=== PATIENT | female | born 1940 | race Caucasian/White ===

== ENCOUNTER 2017-05-11 17:09 | Inpatient (IN) | payer MEDICARE ==
[~2017-05-11] VITALS: Ht 165.1 cm; Wt 60.3 kg
[~2017-05-11 17:09] MED LIST: CALCIUM CARBON500 M1 PO; CALCIUM CITRATE1 TA5 PO; CARAFATE 1GM1 G PO; CELEXA 20MG20 MG/TAB PO; CLARITIN10 MG PO; DITROPAN 5MG TAB5 MG PO; DOXYCYCLINE 10100 MG PO; EPA FISH OIL1000 MG PO; FISH OIL1 IU PO; FISH OIL500 MG PO; FLUOXETINE10 MG PO; ILOTYCIN5 MG/GM OU; LASIX 20MG TABL20 MG PO; LEVAQUIN 5500 MG/TA1 PO; LEVOTHYROXINE PO; LEVOTHYROXINE0.1 MG PO; LEVOXYL0.1 MG PO; LISINOPRIL20 MG PO; MACROBID 1100 MG/CAP PO; MAXZIDE-25MG TA1 TAB PO; MEDROL 4MG DOSPA4 MG PO; NIASPAN500 MG PO; OMEPRAZOLE20 MG PO; OMNICEF 300MG300 MG PO; PEPCID20 MG PO; PRAVACHOL 20MG20 MG PO; PRIL40 PO; PRILOSEC 20MG20 MG PO; PROTONIX 40MG T40 MG PO; ROPINIROLE HYDRO1 MG PO; SARAFEM10 MG PO; SYNTHROID0.1 MG/TAB PO; SYNTHROID0.112 MG/T PO; TAB-A-VITE1 TA1 PO; TRIAMTERENE-HCTZ; TRIAMTERENE/HCT1 TAB PO; UNABLE; ZITHROMAX Z PA250 MG PO
[2017-05-11 17:36] LABS: BASO % 0.3 % (0.0-2.0); EOS # 0.1 (0.0-0.7); EOS % 1.2 % (0-4.0); GRAN # 5.2 (1.4-6.5); GRAN % 78.2 % (42.2-75.2); LYMPH # 0.8 (1.2-3.4); LYMPH % 11.6 % (20.0-51.0); MEAN CELL VOLUME 79 fl (80.0-100.0); MEAN CORPUSCULAR HGB CONC 31 g/dl (33.0-37.0); MEAN PLATELET VOLUME 10.5 fl (7.4-10.4); MONO # 0.6 (0.1-0.6); MONO % 8.4 % (1.7-9.3); PLATELET COUNT 352 K/mm3 (130-400); REDCELL DISTRIBUTION WIDTH-CV 15.9 % (11.5-14.5); WHITE BLOOD COUNT 6.7 K/mm3 (4.8-10.8)
[2017-05-11 17:37] LABS: PROTHROMBIN TIME 10.6 SECONDS (9.7-12.8)
[2017-05-11 17:38] LABS: HEMATOCRIT 32.3 % (37.0-47.0); MEAN CORPUSCULAR HEMOGLOBIN 24 pg (27.0-31.0)
[2017-05-11 17:40] LABS: PARTIAL THROMBOPLASTIN TIME 31.4 SECONDS (26.0-37.0)
[2017-05-11 17:42] LABS: ADJUSTED CALCIUM 9.3 mg/dL (8.4-10.2); ALANINE AMINOTRANSFERASE 23 U/L (9-52); ALBUMIN 4.1 gm/dL (3.5-5.0); ALKALINE PHOSPHATASE 82 U/L (50-136); ANION GAP 10 mmol/L (7-16); BILIRUBIN,TOTAL 0.4 mg/dL (0.0-1.0); BLOOD UREA NITROGEN 21 mg/dL (7-17); CALCIUM 9.4 mg/dL (8.4-10.2); CARBON DIOXIDE 29 mmol/L (22-30); CHLORIDE 100 mmol/L (98-107); CREATININE, serum 0.79 mg/dL (0.52-1.25); GLUCOSE 94 mg/dL (74-106); LIPASE 301 U/L (23-300); SODIUM 139 mmol/L (137-145); TOTAL PROTEIN 6.9 gm/dL (6.4-8.2)
[2017-05-11 17:43] LABS: C-REACTIVE PROTEIN < 0.5 mg/dL (0.0-0.9)
[2017-05-11] MEDS ORDERED: ACIPHEX20 MG PO (17:43)
[2017-05-11] MEDS ORDERED: ZYPREXA2.5 MG PO (17:43)
[2017-05-11] MEDS ORDERED: DULCOLAX TAB5 MG RC (17:45)
[2017-05-11] MEDS ORDERED: COLACE 100100 MG/CAP PO (17:46)
[2017-05-11] MEDS ORDERED: MIRALAX PA17 GM/Dose PO (17:48)
[2017-05-11] MEDS ORDERED: PROBIOTIC FORMU1 CAP PO (17:49)
[2017-05-11 17:51] LABS: B-TYPE NATRIURETIC PEPTIDE 444 pg/mL (0-450); TROPONIN-I < 0.012 ng/mL (0.000-0.034)
[2017-05-11 19:04] LABS: PH 6 (5-8); SQUAMOUS EPITHELIAL None Seen /hpf; URINE APPEARANCE Clear; URINE BACTERIA None Seen /hpf; URINE BILIRUBIN Negative (NEGATIVE); URINE BLOOD Negative (NEGATIVE); URINE COLOR Yellow; URINE GLUCOSE Negative (NEGATIVE); URINE KETONE Negative (NEGATIVE); URINE RBC 0-2 /hpf; URINE UROBILINOGEN Negative (NEGATIVE); URINE WBC 0-2 /hpf
[2017-05-11 21:03] VITALS: BP 105/59; PULSE 64; TEMP 98.3
[2017-05-12] VITALS (8 sets, daily range): BP systolic 110–150; BP diastolic 41–58; PULSE 53–76; TEMP 97.3–98.6
[2017-05-12] MEDS ORDERED: DULCOLAX S10 MG/SUPP RC (04:30)
[2017-05-12] MEDS ORDERED: VITAMIN D 1001000 IU PO (04:30)
[2017-05-12] MEDS ORDERED: IMODIUM A-D2 MG PO (04:32)
[2017-05-12] MEDS ORDERED: NORCO 325 MG-7.1 TAB PO ×2 (04:33→04:34)
[2017-05-12] MEDS ORDERED: PHENERGAN 25 TA25 MG PO (04:33)
[2017-05-12 06:53] LABS: BASO % 0.5 % (0.0-2.0); EOS # 0.1 (0.0-0.7); EOS % 2.1 % (0-4.0); GRAN % 70.9 % (42.2-75.2); LYMPH # 0.9 (1.2-3.4); LYMPH % 16.1 % (20.0-51.0); MEAN CELL VOLUME 79 fl (80.0-100.0); MEAN CORPUSCULAR HGB CONC 31 g/dl (33.0-37.0); MEAN PLATELET VOLUME 11.2 fl (7.4-10.4); MONO # 0.6 (0.1-0.6); MONO % 9.9 % (1.7-9.3); PLATELET COUNT 365 K/mm3 (130-400); REDCELL DISTRIBUTION WIDTH-CV 16.3 % (11.5-14.5); WHITE BLOOD COUNT 5.7 K/mm3 (4.8-10.8)
[2017-05-12 07:08] LABS: HEMATOCRIT 34.8 % (37.0-47.0); HEMOGLOBIN 10.7 g/dl (12.5-16.0); MEAN CORPUSCULAR HEMOGLOBIN 24 pg (27.0-31.0)
[2017-05-12 07:13] LABS: ADJUSTED CALCIUM 9.5 mg/dL (8.4-10.2); ALBUMIN 3.6 gm/dL (3.5-5.0); BILIRUBIN,TOTAL 0.5 mg/dL (0.0-1.0); CALCIUM 9.2 mg/dL (8.4-10.2); CREATININE, serum 0.74 mg/dL (0.52-1.25); MAGNESIUM 1.9 mg/dL (1.6-2.3); POTASSIUM 3.5 mmol/L (3.4-5.0); TOTAL PROTEIN 6.4 gm/dL (6.4-8.2)
[2017-05-12 07:23] LABS: TROPONIN-I 0.013 ng/mL (0.000-0.034)
[2017-05-13 02:24] VITALS: BP 132/53; PULSE 56; TEMP 97.9
[2017-05-13 05:24] VITALS: BP 136/45; PULSE 55; TEMP 97.3
[2017-05-13 09:57] VITALS: BP 109/40; PULSE 63; TEMP 98.9
[2017-05-13 14:28] VITALS: BP 92/45; PULSE 96; TEMP 99
[2017-05-13 18:03] VITALS: BP 100/43; PULSE 86; TEMP 98.6
[2017-05-13 21:37] VITALS: BP 108/34; PULSE 60; TEMP 98.3
[2017-05-14 02:05] VITALS: BP 116/46; PULSE 53; TEMP 98.3
[2017-05-14 05:15] VITALS: BP 118/51; PULSE 98; TEMP 98.4
[2017-05-14 07:23] LABS: BASO % 0.9 % (0.0-2.0); EOS # 0.1 (0.0-0.7); EOS % 3.3 % (0-4.0); GRAN # 2.7 (1.4-6.5); LYMPH # 0.8 (1.2-3.4); LYMPH % 19.3 % (20.0-51.0); MEAN CELL VOLUME 79 fl (80.0-100.0); MEAN CORPUSCULAR HGB CONC 31 g/dl (33.0-37.0); MEAN PLATELET VOLUME 10.6 fl (7.4-10.4); MONO # 0.5 (0.1-0.6); PLATELET COUNT 321 K/mm3 (130-400); RED BLOOD COUNT 4.15 M/mm3 (4.10-5.30); REDCELL DISTRIBUTION WIDTH-CV 16.4 % (11.5-14.5); WHITE BLOOD COUNT 4.2 K/mm3 (4.8-10.8)
[2017-05-14 07:26] LABS: HEMATOCRIT 32.9 % (37.0-47.0); HEMOGLOBIN 10.1 g/dl (12.5-16.0); MEAN CORPUSCULAR HEMOGLOBIN 24 pg (27.0-31.0)
[2017-05-14 07:41] LABS: CALCIUM 8.6 mg/dL (8.4-10.2); CREATININE, serum 0.67 mg/dL (0.52-1.25); MAGNESIUM 1.8 mg/dL (1.6-2.3); POTASSIUM 3.4 mmol/L (3.4-5.0)
[2017-05-14] MEDS ORDERED: NORCO 325 MG-51 TAB PO (08:51)
[2017-05-14 09:48] VITALS: BP 118/51; PULSE 98; TEMP 98.4
== END 2017-05-14 10:30 | DRG 388 ==
LOC: COL.ER 17:09 → SURG 19:12
PROVIDERS: Emergency Medicine; Nurse Practitioner Family
PROC: 0D9670Z Drainage of Stomach with Drainage Device, Via Natural or Artificial Opening (ICD-10-PCS; principal; 2017-05-11)
DX: K56.7 Ileus, unspecified (principal); E43 Unspecified severe protein-calorie malnutrition; K58.9 Irritable bowel syndrome, unspecified; R33.9 Retention of urine, unspecified; N32.81 Overactive bladder
CPT/HCPCS: 99222-AI; 99232-AI; 99239; C9113; G0378; J1650; J7030; Q9967

== ENCOUNTER → 2017-07-14 | Outpatient (REF) ==
[~2017-07-14] MED LIST changes: +ACIPHEX20 MG PO; +COLACE 100100 MG/CAP PO; +DULCOLAX S10 MG/SUPP RC; +DULCOLAX TAB5 MG RC; +IMODIUM A-D2 MG PO; +MIRALAX PA17 GM/Dose PO; +NORCO 325 MG-51 TAB PO; +NORCO 325 MG-7.1 TAB PO; +PHENERGAN 25 TA25 MG PO; +PROBIOTIC FORMU1 CAP PO; +VITAMIN D 1001000 IU PO; +ZYPREXA2.5 MG PO
[2017-07-14 10:53] LABS: BASO % 0.9 % (0.0-2.0); EOS # 0.1 (0.0-0.7); EOS % 4.2 % (0-4.0); GRAN # 1.6 (1.4-6.5); GRAN % 49.8 % (42.2-75.2); LYMPH # 1.1 (1.2-3.4); LYMPH % 31.8 % (20.0-51.0); MEAN CELL VOLUME 76 fl (80.0-100.0); MEAN CORPUSCULAR HGB CONC 31 g/dl (33.0-37.0); MEAN PLATELET VOLUME 10.9 fl (7.4-10.4); MONO # 0.4 (0.1-0.6); MONO % 13.3 % (1.7-9.3); PLATELET COUNT 362 K/mm3 (130-400); RED BLOOD COUNT 4.74 M/mm3 (4.10-5.30); REDCELL DISTRIBUTION WIDTH-CV 19.3 % (11.5-14.5); WHITE BLOOD COUNT 3.3 K/mm3 (4.8-10.8)
[2017-07-14 10:56] LABS: HEMOGLOBIN 11.1 g/dl (12.5-16.0); MEAN CORPUSCULAR HEMOGLOBIN 23 pg (27.0-31.0)
[2017-07-14 11:17] LABS: ADJUSTED CALCIUM 10.1 mg/dL (8.4-10.2); ALBUMIN 3.5 gm/dL (3.5-5.0); BILIRUBIN,TOTAL 0.5 mg/dL (0.0-1.0); CALCIUM 9.7 mg/dL (8.4-10.2); CREATININE, serum 0.72 mg/dL (0.52-1.25); POTASSIUM 5.4 mmol/L (3.4-5.0)
[2017-07-14 11:49] LABS: THYROID STIMULATING HORMONE 2.19 uIU/mL (0.465-4.680)
== END ==
LOC: ZLAB.STJ 10:42
PROVIDERS: Family Medicine
DX: Z02.89 Encounter for other administrative examinations (principal)

== ENCOUNTER → 2017-07-19 | Outpatient (REF) ==
[2017-07-19 10:04] LABS: RETIC % 0.6 % (0.5-3.52)
[2017-07-19 10:59] LABS: TOTAL IRON BINDING CAPACITY 402 ug/dL (265-497)
[2017-07-19 11:23] LABS: FERRITIN 11 ng/mL (11-264)
== END ==
LOC: ZLAB.STJ 09:38
PROVIDERS: Family Medicine
DX: Z02.89 Encounter for other administrative examinations (principal)

== ENCOUNTER → 2017-12-06 | Outpatient (CLI) | payer MEDICARE | LOC: ZLAB.STJ 16:05 | DX: E03.9 Hypothyroidism, unspecified (principal) ==

== ENCOUNTER → 2018-01-08 | Outpatient (CLI) | payer MEDICARE | LOC: ZCOL.LAB 07:03 | DX: Z01.89 Encounter for other specified special examinations (principal) ==

== ENCOUNTER → 2018-03-16 | Outpatient (CLI) | payer MEDICARE | LOC: COL.RAD 08:58 | DX: M16.0 Bilateral primary osteoarthritis of hip (principal); K13.79 Other lesions of oral mucosa; K59.00 Constipation, unspecified; Z97.2 Presence of dental prosthetic device (complete) (partial) ==

== ENCOUNTER → 2018-06-01 | Outpatient (CLI) | payer MEDICARE ==
[2018-06-01 10:11] LABS: CALCIUM 9.8 mg/dL (8.4-10.2); CREATININE, serum 0.61 mg/dL (0.52-1.25); POTASSIUM 5.4 mmol/L (3.4-5.0)
== END ==
LOC: ZLAB.STJ 09:48
PROVIDERS: Family Medicine
DX: Z01.89 Encounter for other specified special examinations (principal)

== ENCOUNTER → 2018-06-15 | Outpatient (REF) ==
[2018-06-15 10:02] LABS: CALCIUM 9.5 mg/dL (8.4-10.2); CREATININE, serum 0.66 mg/dL (0.52-1.25); POTASSIUM 5.4 mmol/L (3.4-5.0)
== END ==
LOC: ZLAB.STJ 09:44
PROVIDERS: Family Medicine
DX: I10 Essential (primary) hypertension (principal)

== ENCOUNTER → 2018-09-05 | Outpatient (REF) ==
[2018-09-05 14:12] LABS: HEMATOCRIT 43.5 % (37.0-47.0); HEMOGLOBIN 13.9 g/dl (12.5-16.0); MEAN CELL VOLUME 87 fl (80.0-100.0); MEAN CORPUSCULAR HEMOGLOBIN 28 pg (27.0-31.0); MEAN CORPUSCULAR HGB CONC 32 g/dl (33.0-37.0); MEAN PLATELET VOLUME 11.1 fl (7.4-10.4); PLATELET COUNT 286 K/mm3 (130-400); REDCELL DISTRIBUTION WIDTH-CV 15.1 % (11.5-14.5)
== END ==
LOC: ZLAB.STJ 13:50
PROVIDERS: Family Medicine
DX: E03.9 Hypothyroidism, unspecified (principal); F41.8 Other specified anxiety disorders; R03.0 Elevated blood-pressure reading, without diagnosis of hypertension

== ENCOUNTER → 2018-10-03 | Outpatient (CLI) | payer MEDICARE ==
[2018-10-03 11:58] LABS: BASO % 0.8 % (0.0-2.0); EOS # 0.1 (0.0-0.7); EOS % 2.4 % (0-4.0); GRAN # 3.1 (1.4-6.5); HEMATOCRIT 44.7 % (37.0-47.0); LYMPH # 1.2 (1.2-3.4); LYMPH % 23.8 % (20.0-51.0); MEAN CELL VOLUME 89 fl (80.0-100.0); MEAN CORPUSCULAR HEMOGLOBIN 28 pg (27.0-31.0); MEAN CORPUSCULAR HGB CONC 31 g/dl (33.0-37.0); MONO # 0.6 (0.1-0.6); MONO % 11.6 % (1.7-9.3); PLATELET COUNT 415 K/mm3 (130-400); REDCELL DISTRIBUTION WIDTH-CV 15.9 % (11.5-14.5)
== END ==
LOC: ZLAB.STJ 10:16
PROVIDERS: Family Medicine
DX: R68.89 Other general symptoms and signs (principal)

== ENCOUNTER → 2018-11-02 | Outpatient (CLI) | payer MEDICARE | LOC: ZCOL.LAB 10:02 | DX: D51.0 Vitamin B12 deficiency anemia due to intrinsic factor deficiency (principal) ==

== ENCOUNTER 2019-01-24 10:08 | Emergency (ER) | payer MEDICARE ==
[~2019-01-24] VITALS: Ht 170.2 cm; Wt 64.5 kg
[2019-01-24 10:19] VITALS: TEMP 98.1
[2019-01-24 10:49] LABS: COLLECTION METHOD CATHETER
[2019-01-24 10:59] LABS: PH 6 (5-8); SQUAMOUS EPITHELIAL None Seen /hpf; URINE APPEARANCE Clear; URINE BACTERIA Rare /hpf; URINE BILIRUBIN Negative (NEGATIVE); URINE BLOOD Negative (NEGATIVE); URINE COLOR Straw; URINE GLUCOSE Negative (NEGATIVE); URINE KETONE Negative (NEGATIVE); URINE LEUKOCYTE ESTERASE 2+ (NEGATIVE); URINE NITRATE Negative (NEGATIVE); URINE PROTEIN(semi-quant) Negative (NEGATIVE); URINE RBC 0-2 /hpf; URINE UROBILINOGEN Negative (NEGATIVE)
[2019-01-24 11:17] LABS: BASO % 0.8 % (0.0-2.0); EOS # 0.1 (0.0-0.7); EOS % 2.6 % (0-4.0); GRAN # 3.7 (1.4-6.5); GRAN % 68.9 % (42.2-75.2); HEMATOCRIT 40.3 % (37.0-47.0); HEMOGLOBIN 12.6 g/dl (12.5-16.0); LYMPH # 0.8 (1.2-3.4); LYMPH % 14.1 % (20.0-51.0); MEAN CELL VOLUME 86 fl (80.0-100.0); MEAN CORPUSCULAR HEMOGLOBIN 27 pg (27.0-31.0); MEAN CORPUSCULAR HGB CONC 31 g/dl (33.0-37.0); MEAN PLATELET VOLUME 10.4 fl (7.4-10.4); MONO # 0.7 (0.1-0.6); MONO % 13.2 % (1.7-9.3); PLATELET COUNT 360 K/mm3 (130-400); RED BLOOD COUNT 4.71 M/mm3 (4.10-5.30); REDCELL DISTRIBUTION WIDTH-CV 15.9 % (11.5-14.5)
[2019-01-24 11:23] LABS: ALBUMIN 3.7 gm/dL (3.5-5.0); BILIRUBIN,TOTAL 0.3 mg/dL (0.0-1.0); CALCIUM 9.3 mg/dL (8.4-10.2); CREATININE, serum 0.78 mg/dL (0.52-1.25); POTASSIUM 3.7 mmol/L (3.4-5.0); TOTAL PROTEIN 6.5 gm/dL (6.4-8.2)
[2019-01-24] MEDS ORDERED: MULTI VITAMINS1 TAB PO (11:27)
[2019-01-24] MEDS ORDERED: TYLENOL 325MG325 MG PO (11:29)
[2019-01-24] MEDS ORDERED: LASIX 20MG TABL20 MG PO (11:30)
[2019-01-24] MEDS ORDERED: OMNICEF 300MG300 MG PO (11:34)
[2019-01-24 11:51] LABS: PROTHROMBIN TIME 11.3 SECONDS (9.7-12.8)
[2019-01-24 12:50] VITALS: BP 111/92; PULSE 62
== END 2019-01-24 12:58 | disposition home or self-care (01) ==
LOC: COL.ER 10:08
PROVIDERS: Emergency Medicine
DX: K92.2 Gastrointestinal hemorrhage, unspecified (principal); E03.9 Hypothyroidism, unspecified; Z90.710 Acquired absence of both cervix and uterus
CPT/HCPCS: A4216; J0696; J7030

== ENCOUNTER 2019-02-01 07:08 | Emergency (ER) | payer MEDICARE ==
[~2019-02-01] VITALS: Ht 170.2 cm; Wt 68.2 kg
[2019-02-01 07:08] VITALS: TEMP 97.5
[~2019-02-01 07:08] MED LIST changes: +MULTI VITAMINS1 TAB PO; +TYLENOL 325MG325 MG PO
[2019-02-01 07:39] LABS: BASO % 0.9 % (0.0-2.0); EOS # 0.1 (0.0-0.7); EOS % 3.3 % (0-4.0); GRAN % 58.3 % (42.2-75.2); HEMATOCRIT 41.9 % (37.0-47.0); LYMPH # 0.8 (1.2-3.4); LYMPH % 24.6 % (20.0-51.0); MEAN CELL VOLUME 86 fl (80.0-100.0); MEAN CORPUSCULAR HEMOGLOBIN 27 pg (27.0-31.0); MEAN CORPUSCULAR HGB CONC 31 g/dl (33.0-37.0); MEAN PLATELET VOLUME 10.3 fl (7.4-10.4); MONO # 0.4 (0.1-0.6); MONO % 12.6 % (1.7-9.3); PLATELET COUNT 318 K/mm3 (130-400); RED BLOOD COUNT 4.86 M/mm3 (4.10-5.30); REDCELL DISTRIBUTION WIDTH-CV 16.1 % (11.5-14.5)
[2019-02-01 07:45] LABS: INR 0.9 (0.8-3.0); PROTHROMBIN TIME 10.3 SECONDS (9.7-12.8)
[2019-02-01 07:48] LABS: PARTIAL THROMBOPLASTIN TIME 38.7 SECONDS (26.0-37.0)
[2019-02-01] MEDS ORDERED: DESYREL 50MG50 MG PO (07:48)
[2019-02-01 07:49] LABS: ALBUMIN 3.9 gm/dL (3.5-5.0); BILIRUBIN,TOTAL 0.3 mg/dL (0.0-1.0); CALCIUM 9.5 mg/dL (8.4-10.2); CREATININE, serum 0.73 mg/dL (0.52-1.25); POTASSIUM 3.9 mmol/L (3.4-5.0); TOTAL PROTEIN 7.2 gm/dL (6.4-8.2)
[2019-02-01] MEDS ORDERED: MILK OF MA400 MG/52 (07:51)
[2019-02-01 08:16] LABS: COLLECTION METHOD CATHETER
[2019-02-01 08:27] LABS: PH 8 (5-8); SQUAMOUS EPITHELIAL 0-2 /hpf; URINE APPEARANCE Clear; URINE BACTERIA None Seen /hpf; URINE BILIRUBIN Negative (NEGATIVE); URINE BLOOD Negative (NEGATIVE); URINE COLOR Colorless; URINE GLUCOSE Negative (NEGATIVE); URINE KETONE Negative (NEGATIVE); URINE LEUKOCYTE ESTERASE Negative (NEGATIVE); URINE NITRATE Negative (NEGATIVE); URINE PROTEIN(semi-quant) Negative (NEGATIVE); URINE RBC 0-2 /hpf; URINE UROBILINOGEN Negative (NEGATIVE)
[2019-02-01 08:35] VITALS: PULSE 86
[2019-02-01 12:25] VITALS: BP 138/74
== END 2019-02-01 12:58 | disposition home or self-care (01) ==
LOC: COL.ER 07:08
PROVIDERS: Emergency Medicine
DX: S79.911A Unspecified injury of right hip, initial encounter (principal); S70.02XA Contusion of left hip, initial encounter; S70.01XA Contusion of right hip, initial encounter; W01.0XXA Fall on same level from slipping, tripping and stumbling without subsequent striking against object, initial encounter; Y92.129 Unspecified place in nursing home as the place of occurrence of the external cause; K58.9 Irritable bowel syndrome, unspecified
CPT/HCPCS: J2405; J3010

== ENCOUNTER → 2019-02-03 | Outpatient (CLI) | payer MEDICARE ==
[~2019-02-03] MED LIST changes: +DESYREL 50MG50 MG PO; +MILK OF MA400 MG/52
[2019-02-03 15:17] LABS: ALBUMIN 3.6 gm/dL (3.5-5.0); BILIRUBIN,TOTAL 0.3 mg/dL (0.0-1.0); CALCIUM 9.5 mg/dL (8.4-10.2); CREATININE, serum 0.81 (0.52-1.25); MAGNESIUM 2.3 mg/dL (1.6-2.3); POTASSIUM 4.3 mmol/L (3.4-5.0); TOTAL PROTEIN 6.5 gm/dL (6.4-8.2)
[2019-02-03 15:31] LABS: CHOLESTEROL RISK RATIO 3.2
[2019-02-03 15:47] LABS: THYROID STIMULATING HORMONE 4.6 uIU/mL (0.465-4.680)
[2019-02-03 16:51] LABS: BASO % 0.8 % (0.0-2.0); EOS # 0.1 (0.0-0.7); EOS % 3.5 % (0-4.0); GRAN # 2.4 (1.4-6.5); GRAN % 64.1 % (42.2-75.2); HEMATOCRIT 40.6 % (37.0-47.0); HEMOGLOBIN 12.7 g/dl (12.5-16.0); LYMPH # 0.8 (1.2-3.4); LYMPH % 20.3 % (20.0-51.0); MEAN CELL VOLUME 86 fl (80.0-100.0); MEAN CORPUSCULAR HEMOGLOBIN 27 pg (27.0-31.0); MEAN CORPUSCULAR HGB CONC 31 g/dl (33.0-37.0); MEAN PLATELET VOLUME 10.8 fl (7.4-10.4); MONO # 0.4 (0.1-0.6); PLATELET COUNT 347 K/mm3 (130-400); RED BLOOD COUNT 4.75 M/mm3 (4.10-5.30); REDCELL DISTRIBUTION WIDTH-CV 16.1 % (11.5-14.5)
== END ==
LOC: ZLAB.STJ 14:15
PROVIDERS: Family Medicine
DX: M62.81 Muscle weakness (generalized) (principal); E03.9 Hypothyroidism, unspecified

== ENCOUNTER → 2019-03-09 | Outpatient (CLI) | payer MEDICARE ==
[2019-03-09 12:59] LABS: COLLECTION METHOD CLEAN CATCH
[2019-03-09 13:22] LABS: CALCIUM 9.6 mg/dL (8.4-10.2); CREATININE, serum 0.73 (0.52-1.25)
[2019-03-09 13:24] LABS: BASO % 0.6 % (0.0-2.0); EOS # 0.1 (0.0-0.7); EOS % 3.2 % (0-4.0); GRAN # 1.9 (1.4-6.5); GRAN % 56.8 % (42.2-75.2); HEMATOCRIT 39.5 % (37.0-47.0); HEMOGLOBIN 12.2 g/dl (12.5-16.0); LYMPH # 0.8 (1.2-3.4); LYMPH % 24.4 % (20.0-51.0); MEAN CELL VOLUME 87 fl (80.0-100.0); MEAN CORPUSCULAR HEMOGLOBIN 27 pg (27.0-31.0); MEAN CORPUSCULAR HGB CONC 31 g/dl (33.0-37.0); MEAN PLATELET VOLUME 10.6 fl (7.4-10.4); MONO # 0.5 (0.1-0.6); PLATELET COUNT 325 K/mm3 (130-400); RED BLOOD COUNT 4.54 M/mm3 (4.10-5.30); REDCELL DISTRIBUTION WIDTH-CV 15.9 % (11.5-14.5)
[2019-03-09 13:27] LABS: MUCOUS Present /lpf; PH 5 (5-8); URINE APPEARANCE Hazy; URINE BACTERIA None Seen /hpf; URINE BILIRUBIN Negative (NEGATIVE); URINE BLOOD Negative (NEGATIVE); URINE COLOR Yellow; URINE GLUCOSE Negative (NEGATIVE); URINE KETONE Negative (NEGATIVE); URINE LEUKOCYTE ESTERASE 1+ (NEGATIVE); URINE NITRATE Negative (NEGATIVE); URINE PROTEIN(semi-quant) Negative (NEGATIVE); URINE RBC 0-2 /hpf; URINE UROBILINOGEN Negative (NEGATIVE)
== END ==
LOC: ZLAB.STJ 12:04 → COL.RAD 12:04
PROVIDERS: Family Medicine
DX: E78.00 Pure hypercholesterolemia, unspecified (principal); R53.1 Weakness

== ENCOUNTER 2019-03-20 12:59 | Outpatient (CLI) | payer MEDICARE ==
[~2019-03-20] VITALS: Ht 170.3 cm; Wt 66.4 kg
[2019-03-20 13:41] LABS: HEMATOCRIT 42.1 % (37.0-47.0); HEMOGLOBIN 13.4 g/dl (12.5-16.0); MEAN CELL VOLUME 86 fl (80.0-100.0); MEAN CORPUSCULAR HEMOGLOBIN 28 pg (27.0-31.0); MEAN CORPUSCULAR HGB CONC 32 g/dl (33.0-37.0); MEAN PLATELET VOLUME 10.1 fl (7.4-10.4); PLATELET COUNT 341 K/mm3 (130-400); RED BLOOD COUNT 4.88 M/mm3 (4.10-5.30)
[2019-03-20 13:43] LABS: PROTHROMBIN TIME 10.9 SECONDS (9.7-12.8)
[2019-03-20 13:49] LABS: CALCIUM 9.6 mg/dL (8.4-10.2); CREATININE, serum 0.7 (0.52-1.25); POTASSIUM 3.9 mmol/L (3.4-5.0)
[2019-03-20] MEDS ORDERED: IBU400 MG PO (14:03)
[2019-03-20] MEDS ORDERED: NATURAL IRON65 MG PO (14:04)
[2019-03-20 14:08] VITALS: BP 120/70; PULSE 86; TEMP 98
[2019-03-20 14:58] VITALS: BP 134/96; PULSE 86; TEMP 98
[2019-03-20 15:13] VITALS: BP 115/55; PULSE 78; TEMP 98
--- NOTE | 2019-03-20 15:21 | NUR ---
650 mg Tylnol given PO crushed in vanilla pudding for headache pain
[2019-03-20 15:28] VITALS: BP 119/59; PULSE 69; TEMP 98
[2019-03-20 15:43] VITALS: BP 120/61; PULSE 69; TEMP 98
[2019-03-20 16:20] VITALS: BP 118/62; PULSE 66; TEMP 98
--- NOTE | 2019-03-20 16:21 | NUR ---
INT discontinued intact. Discharge instructions given to template layout worker [facility]. Transferred to [facility] car by valentino
== END 2019-03-20 16:22 ==
LOC: COL.RAD 12:59
PROVIDERS: Internal Medicine Cardiovascular Disease
DX: Z01.810 Encounter for preprocedural cardiovascular examination (principal); I51.7 Cardiomegaly; I48.91 Unspecified atrial fibrillation; I44.4 Left anterior fascicular block
CPT/HCPCS: J2704

== ENCOUNTER → 2019-06-22 | Outpatient (CLI) | payer MEDICARE ==
[~2019-06-22] MED LIST changes: +IBU400 MG PO; +NATURAL IRON65 MG PO
[2019-06-22 11:37] LABS: COLLECTION METHOD CLEAN CATCH
[2019-06-22 11:54] LABS: PH 6 (5-8); SQUAMOUS EPITHELIAL 0-2 /hpf; URINE APPEARANCE Hazy; URINE BACTERIA Rare /hpf; URINE BILIRUBIN Negative (NEGATIVE); URINE BLOOD 1+ (NEGATIVE); URINE COLOR Yellow; URINE GLUCOSE Negative (NEGATIVE); URINE KETONE Negative (NEGATIVE); URINE LEUKOCYTE ESTERASE 3+ (NEGATIVE); URINE NITRATE Negative (NEGATIVE); URINE PROTEIN(semi-quant) Negative (NEGATIVE); URINE UROBILINOGEN Negative (NEGATIVE)
== END ==
LOC: ZLAB.STJ 10:21
PROVIDERS: Family Medicine
DX: R89.2 Abnormal level of other drugs, medicaments and biological substances in specimens from other organs, systems and tissues (principal)

== ENCOUNTER → 2019-07-20 | Outpatient (CLI) | payer MEDICARE ==
[2019-07-20 12:55] LABS: CREATININE, serum 0.67 (0.52-1.25); POTASSIUM 4.5 mmol/L (3.4-5.0)
== END ==
LOC: ZLAB.STJ 11:40 → ZCOL.LAB 11:40
PROVIDERS: Family Medicine
DX: I10 Essential (primary) hypertension (principal)

== ENCOUNTER → 2019-08-15 | Outpatient (CLI) | payer MEDICARE ==
[2019-08-15 18:15] LABS: CALCIUM 8.8 mg/dL (8.4-10.2); CREATININE, serum 0.95 (0.52-1.25); POTASSIUM 4.3 mmol/L (3.4-5.0)
== END ==
LOC: ZCOL.LAB 17:20 → ZLAB.STJ 17:20
PROVIDERS: Family Medicine
DX: I10 Essential (primary) hypertension (principal); K21.0 Gastro-esophageal reflux disease with esophagitis

== ENCOUNTER → 2019-08-22 | Outpatient (CLI) | payer MEDICARE, MEDICAID | LOC: ZCOL.LAB 18:12 | DX: K21.9 Gastro-esophageal reflux disease without esophagitis (principal); I10 Essential (primary) hypertension ==

== ENCOUNTER → 2019-08-22 | Outpatient (CLI) | payer MEDICARE, MEDICAID ==
[2019-08-22 20:29] LABS: CALCIUM 8.9 mg/dL (8.4-10.2); CREATININE, serum 1.01 (0.52-1.25); POTASSIUM 4.6 mmol/L (3.4-5.0)
== END ==
LOC: ZCOL.LAB 18:56 → ZLAB.STJ 18:56
PROVIDERS: Family Medicine
DX: K21.9 Gastro-esophageal reflux disease without esophagitis (principal); I10 Essential (primary) hypertension

== ENCOUNTER → 2019-09-05 | Outpatient (CLI) | payer MEDICARE, MEDICAID | LOC: ZLAB.STJ 16:45 | DX: I10 Essential (primary) hypertension (principal) ==

== ENCOUNTER → 2019-09-06 | Outpatient (CLI) | payer MEDICARE, MEDICAID ==
[2019-09-06 17:49] LABS: CALCIUM 8.9 mg/dL (8.4-10.2); CREATININE, serum 0.88 (0.52-1.25); POTASSIUM 4.4 mmol/L (3.4-5.0)
== END ==
LOC: ZLAB.STJ 17:15
PROVIDERS: Family Medicine
DX: R79.89 Other specified abnormal findings of blood chemistry (principal)

== ENCOUNTER → 2019-09-15 | Outpatient (CLI) | payer MEDICARE, MEDICAID ==
[2019-09-15 16:41] LABS: COLLECTION METHOD CLEAN CATCH
[2019-09-15 16:57] LABS: BUDDING YEAST Present /hpf; PH 5 (5-8); URINE APPEARANCE Cloudy; URINE BACTERIA Rare /hpf; URINE BILIRUBIN Negative (NEGATIVE); URINE BLOOD Negative (NEGATIVE); URINE COLOR Yellow; URINE GLUCOSE Negative (NEGATIVE); URINE KETONE Negative (NEGATIVE); URINE LEUKOCYTE ESTERASE 3+ (NEGATIVE); URINE NITRATE Negative (NEGATIVE); URINE PROTEIN(semi-quant) 1+ (NEGATIVE); URINE UROBILINOGEN Negative (NEGATIVE)
== END ==
LOC: ZLAB.STJ 14:20
PROVIDERS: Nurse Practitioner
DX: N32.81 Overactive bladder (principal); R41.0 Disorientation, unspecified

== ENCOUNTER → 2019-09-19 | Outpatient (CLI) | payer MEDICARE, MEDICAID | LOC: COL.LAB 17:35 | DX: E03.9 Hypothyroidism, unspecified (principal) ==

== ENCOUNTER → 2019-10-29 | Outpatient (CLI) | payer MEDICARE, MEDICAID ==
[2019-10-29 12:44] LABS: COLLECTION METHOD CLEAN CATCH
[2019-10-29 13:18] LABS: MUCOUS Present /lpf; PH 5 (5-8); URINE APPEARANCE Turbid; URINE BACTERIA Many /hpf; URINE BILIRUBIN Negative (NEGATIVE); URINE BLOOD 3+ (NEGATIVE); URINE COLOR Amber; URINE GLUCOSE Negative (NEGATIVE); URINE KETONE Negative (NEGATIVE); URINE LEUKOCYTE ESTERASE 3+ (NEGATIVE); URINE NITRATE Negative (NEGATIVE); URINE PROTEIN(semi-quant) 1+ (NEGATIVE); URINE RBC >50 /hpf
== END ==
LOC: ZCOL.LAB 10:54
PROVIDERS: Family Medicine
DX: R82.90 Unspecified abnormal findings in urine (principal)

== ENCOUNTER → 2020-01-10 | Outpatient (CLI) | payer MEDICARE, MEDICAID | LOC: ZLAB.STJ 14:21 | DX: R94.6 Abnormal results of thyroid function studies (principal) ==

== ENCOUNTER → 2020-04-17 | Outpatient (CLI) | payer MEDICARE, MEDICAID | LOC: ZLAB.STJ 15:59 | DX: Z01.84 Encounter for antibody response examination (principal); Z20.828 Contact with and (suspected) exposure to other viral communicable diseases ==

== ENCOUNTER → 2020-06-10 | Outpatient (CLI) | payer MEDICARE, MEDICAID | LOC: ZLAB.STJ 11:56 | DX: R94.6 Abnormal results of thyroid function studies (principal) ==

== ENCOUNTER → 2020-07-25 | Outpatient (CLI) | payer MEDICARE, MEDICAID ==
[2020-07-25 13:25] LABS: BASO # 0.1 (0.0-0.2); BASO % 1.3 % (0.0-2.0); EOS # 0.1 (0.0-0.7); EOS % 2.1 % (0-4.0); GRAN # 2.3 (1.4-6.5); GRAN % 59.1 % (42.2-75.2); LYMPH % 26.2 % (20.0-51.0); MEAN CELL VOLUME 59 fl (80.0-100.0); MEAN CORPUSCULAR HGB CONC 27 g/dl (33.0-37.0); MEAN PLATELET VOLUME 9.6 fl (7.4-10.4); MONO # 0.4 (0.1-0.6); PLATELET COUNT 595 K/mm3 (130-400); RED BLOOD COUNT 5.39 M/mm3 (4.10-5.30); REDCELL DISTRIBUTION WIDTH-CV 24.2 % (11.5-14.5)
[2020-07-25 13:32] LABS: HEMOGLOBIN 8.7 g/dl (12.5-16.0); MEAN CORPUSCULAR HEMOGLOBIN 16 pg (27.0-31.0)
[2020-07-25 13:33] LABS: ALBUMIN 4.7 gm/dL (3.5-5.0); BILIRUBIN,TOTAL 0.5 mg/dL (0.0-1.0); CALCIUM 9.8 mg/dL (8.4-10.2); CHOLESTEROL RISK RATIO 3.5; CREATININE, serum 0.85 (0.52-1.25); POTASSIUM 3.8 mmol/L (3.4-5.0); TOTAL PROTEIN 7.8 gm/dL (6.4-8.2)
[2020-07-25 14:50] LABS: THYROID STIMULATING HORMONE 0.13 uIU/mL (0.465-4.680)
== END ==
LOC: ZLAB.STJ 12:12
PROVIDERS: Internal Medicine
DX: D64.9 Anemia, unspecified (principal); E03.9 Hypothyroidism, unspecified; R79.89 Other specified abnormal findings of blood chemistry; D51.9 Vitamin B12 deficiency anemia, unspecified; E78.00 Pure hypercholesterolemia, unspecified; R79.0 Abnormal level of blood mineral

== ENCOUNTER → 2020-10-31 | Outpatient (CLI) | payer MEDICARE, MEDICAID ==
[2020-10-31 13:01] LABS: ALBUMIN 4.4 gm/dL (3.5-5.0); BILIRUBIN,TOTAL 0.6 mg/dL (0.0-1.0); CALCIUM 9.7 mg/dL (8.4-10.2); CHOLESTEROL RISK RATIO 3.8; CREATININE, serum 0.66 (0.52-1.25); TOTAL PROTEIN 7.6 gm/dL (6.4-8.2)
[2020-10-31 13:30] LABS: THYROID STIMULATING HORMONE 2.97 uIU/mL (0.465-4.680)
== END ==
LOC: ZLAB.STJ 12:07
PROVIDERS: Internal Medicine
DX: E78.00 Pure hypercholesterolemia, unspecified (principal); E03.9 Hypothyroidism, unspecified; I10 Essential (primary) hypertension

== ENCOUNTER → 2021-02-13 | Outpatient (CLI) | payer MEDICARE, MEDICAID ==
[2021-02-13 17:54] LABS: HEMATOCRIT 41.3 % (37.0-47.0); HEMOGLOBIN 12.9 g/dl (12.5-16.0); MEAN CELL VOLUME 90 fl (80.0-100.0); MEAN CORPUSCULAR HEMOGLOBIN 28 pg (27.0-31.0); MEAN CORPUSCULAR HGB CONC 31 g/dl (33.0-37.0); MEAN PLATELET VOLUME 10.6 fl (7.4-10.4); PLATELET COUNT 341 K/mm3 (130-400); RED BLOOD COUNT 4.58 M/mm3 (4.10-5.30); REDCELL DISTRIBUTION WIDTH-CV 15.8 % (11.5-14.5)
[2021-02-14 00:13] LABS: IRON,SERUM 40 ug/dL (35-150); TOTAL IRON BINDING CAPACITY 385 ug/dL (265-497)
== END ==
LOC: ZLAB.STJ 15:49
PROVIDERS: Internal Medicine
DX: E03.9 Hypothyroidism, unspecified (principal)

== ENCOUNTER → 2021-06-04 | Outpatient (CLI) | payer MEDICARE, MEDICAID | LOC: COL.RAD 09:53 | DX: K44.9 Diaphragmatic hernia without obstruction or gangrene (principal) ==

== ENCOUNTER → 2021-09-09 | Outpatient (CLI) | payer MEDICARE, MEDICAID | LOC: ZLAB.STJ 17:46 | DX: E03.9 Hypothyroidism, unspecified (principal) ==

== ENCOUNTER → 2022-01-22 | Outpatient (CLI) | payer MEDICARE, MEDICAID ==
[~2022-01-22] MED LIST changes: +ALLEGRA 60MG TA60 MG PO; +ASPIRIN E.C. 8181 MG PO; +B-121000 MCG PO; +CETAPHIL MOIST240 ML TP; +CORDARONE200 MG/TAB PO; +K-DUR20 MEQ PO; +LIDO3%CREAM TP; +PATADAY 2.5 ML2.5 ML OD; +SINGULAIR 5M5 MG/TAB PO; +VITAMIN C500 MG PO; +VOLTAREN GEL 1%1 TU TP; +ZOLOFT 100MG100 MG PO
== END ==
LOC: ZLAB.STJ 16:00
DX: L03.90 Cellulitis, unspecified (principal)

== ENCOUNTER → 2022-01-29 | Outpatient (CLI) | payer MEDICARE, MEDICAID ==
[~2022-01-29] MED LIST changes: -ALLEGRA 60MG TA60 MG PO; -ASPIRIN E.C. 8181 MG PO; -B-121000 MCG PO; -CETAPHIL MOIST240 ML TP; -CORDARONE200 MG/TAB PO; -K-DUR20 MEQ PO; -LIDO3%CREAM TP; -PATADAY 2.5 ML2.5 ML OD; -SINGULAIR 5M5 MG/TAB PO; -VITAMIN C500 MG PO; -VOLTAREN GEL 1%1 TU TP; -ZOLOFT 100MG100 MG PO
[2022-01-29 10:33] LABS: CALCIUM 8.8 mg/dL (8.4-10.2); CREATININE, serum 0.81 mg/dL (0.57-1.11); POTASSIUM 4.1 mmol/L (3.5-4.5)
== END ==
LOC: ZLAB.STJ 10:19
PROVIDERS: Internal Medicine
DX: E03.9 Hypothyroidism, unspecified (principal); I10 Essential (primary) hypertension

== ENCOUNTER 2022-02-24 07:44 | Inpatient (IN) | payer MEDICARE, MEDICAID ==
[~2022-02-24] VITALS: Ht 170.2 cm; Wt 80.4 kg
[2022-02-24] VITALS (791 sets, daily range): BP systolic 88–120; BP diastolic 48–62; PULSE 71–83; TEMP 36.9–37.1; O2SAT 79–100
[2022-02-24 08:22] LABS: BASO # 0.1 K/mm3 (0.0-0.2); BASO % 0.3 % (0.0-2.0); EOS # 0.1 K/mm3 (0.0-0.7); EOS % 0.3 % (0.0-4.0); GRAN # 17.1 K/mm3 (1.4-6.5); GRAN % 88.1 % (42.2-75.2); HEMATOCRIT 40.9 % (37.0-47.0); HEMOGLOBIN 11.8 g/dl (12.5-16.0); LYMPH # 1.4 K/mm3 (1.2-3.4); MEAN CELL VOLUME 86 fl (80.0-100.0); MEAN CORPUSCULAR HEMOGLOBIN 25 pg (27-31); MEAN CORPUSCULAR HGB CONC 29 g/dl (33.0-37.0); MONO # 0.7 K/mm3 (0.1-0.6); MONO % 3.7 % (1.7-9.3); RED BLOOD COUNT 4.74 M/mm3 (4.10-5.30); REDCELL DISTRIBUTION WIDTH-CV 18.1 % (11.5-14.5)
[2022-02-24 08:35] LABS: ALBUMIN 2.7 gm/dL (3.4-4.8); ALKALINE PHOSPHATASE 90 U/L (40-150); ANION GAP 15 mmol/L (7-16); AST,SGOT 13 U/L (5-34); BILIRUBIN,TOTAL 0.5 mg/dL (0.2-1.2); BLOOD UREA NITROGEN 19 mg/dL (10-20); C-REACTIVE PROTEIN 3.36 mg/dL (0.00-0.50); CALCIUM 8.3 mg/dL (8.4-10.2); CARBON DIOXIDE 19 mmol/L (23-31); CHLORIDE 103 mmol/L (98-107); CREATININE, serum 1.12 mg/dL (0.57-1.11); GLUCOSE 217 mg/dL (70-99); POTASSIUM 4.1 mmol/L (3.5-4.5); SODIUM 137 mmol/L (136-145); TOTAL PROTEIN 5.5 gm/dL (6.2-8.1)
[2022-02-24 08:38] LABS: ALANINE AMINOTRANSFERASE < 6 U/L (0-55)
[2022-02-24 08:41] LABS: PLATELET COUNT 280 K/mm3 (130-400)
[2022-02-24 08:43] LABS: COLLECTION METHOD CATHETER
[2022-02-24 08:45] LABS: TROPONIN-I 0.035 ng/mL (0.00-0.033)
[2022-02-24 08:48] LABS: ARTERIAL BLD GAS O2 SATURATION 95.6 % (92-100); ARTERIAL BLOOD GAS BASE EXCESS -6.1 (-2-2); ARTERIAL BLOOD GAS HCO3 21.4 meq/L (22-26); ARTERIAL BLOOD GAS PCO2 50.6 mmHg (35-45); ARTERIAL BLOOD GAS PO2 92.6 mmHg (80-100); ARTERIAL BLOOD GAS pH 7.25 (7.35-7.45)
[2022-02-24 08:59] LABS: MUCOUS Present (NOT PRESENT); PH 5 (5-8); SQUAMOUS EPITHELIAL 0-2 /hpf (0-10); URINE APPEARANCE Turbid (CLEAR/HAZY); URINE BACTERIA Rare /hpf (NONE SEEN); URINE BILIRUBIN Negative (NEGATIVE); URINE BLOOD Negative (NEGATIVE); URINE COLOR Yellow (YELLOW); URINE GLUCOSE Negative (NEGATIVE); URINE KETONE Negative (NEGATIVE); URINE LEUKOCYTE ESTERASE 3+ (NEGATIVE); URINE NITRATE Negative (NEGATIVE); URINE PROTEIN(semi-quant) 2+ (NEGATIVE); URINE RBC 20-50 /hpf (0-2); URINE UROBILINOGEN Negative (NEGATIVE)
--- NOTE | 2022-02-24 09:34 | NUR ---
PT ADMITTED FROM ED. PT INTUBATED AND SEDATED. PT ON LEVO AND PROPOFOL. HARMAN AND OG IN PLACE. PT MOVED TO BED. PT'S VSS. PT DOES HAVE A CORE TEMP OF 38.1. BEDSIDE. WILL CONTIUE TO [facility].
[2022-02-24] MEDS ORDERED: B-121000 MCG PO (10:34)
[2022-02-24] MEDS ORDERED: ASPIRIN E.C. 8181 MG PO (10:36)
[2022-02-24] MEDS ORDERED: LIDO3%CREAM TP (10:37)
[2022-02-24] MEDS ORDERED: VITAMIN C500 MG PO (10:38)
[2022-02-24] MEDS ORDERED: SINGULAIR 5M5 MG/TAB PO (10:39)
[2022-02-24] MEDS ORDERED: PROTONIX 40MG T40 MG PO (10:41)
[2022-02-24] MEDS ORDERED: ALLEGRA 60MG TA60 MG PO (10:43)
[2022-02-24] MEDS ORDERED: ZOLOFT 100MG100 MG PO (10:44)
[2022-02-24] MEDS ORDERED: CARAFATE 1GM1 G PO (10:45)
[2022-02-24] MEDS ORDERED: K-DUR20 MEQ PO (10:47)
[2022-02-24] MEDS ORDERED: CETAPHIL MOIST240 ML TP (10:48)
[2022-02-24 10:50] LABS: PARTIAL THROMBOPLASTIN TIME 29.6 SECONDS (26.0-37.0)
[2022-02-24 10:55] LABS: INR 1.1 (0.8-3.0); PROTHROMBIN TIME 12.3 SECONDS (9.7-12.8)
[2022-02-24 11:25] LABS: ARTERIAL BLD GAS TCO2 CT 27.1; ARTERIAL BLOOD GAS BASE EXCESS -0.8 (-2-2); ARTERIAL BLOOD GAS HCO3 25.6 meq/L (22-26); ARTERIAL BLOOD GAS PCO2 49.1 mmHg (35-45); ARTERIAL BLOOD GAS pH 7.34 (7.35-7.45)
[2022-02-24 11:26] LABS: ARTERIAL BLOOD GAS PO2 132.4 mmHg (80-100)
--- NOTE | 2022-02-24 15:48 | NUR ---
Patient was brought into emergency room code red and was placed on a ventilator. 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 press worker helper contacted Monet and Tyrese at [facility] and they confirmed that patient was a full code and faxed patient's living will and durable power of state's attorney for health care. Worker met with Dr Hidalgo and advised that [facility] works with brother Janes, regarding all health care decisions. Patient was made a DNR by her durable power of state's attorney for health care and the siblings are plan to arrive at the hospital today 4:00pm. Worker contacted Monet at [facility] and confirmed that they can bring patient's daughter, that also resides there, if family decides to withdraw the ventilator.
--- NOTE | 2022-02-24 16:49 | NUR ---
NO SEDATION VACATION AT THIS TIME DUE TO BEING INTUBATED FOR LESS THAN 12 HOURS. WILL CONTINUE TO [facility].
[2022-02-25] VITALS (1363 sets, daily range): BP systolic 84–129; BP diastolic 40–67; PULSE 71–86; TEMP 36.9–37.4; O2SAT 73–100
[2022-02-25 03:46] LABS: BASO % 0.2 % (0.0-2.0); GRAN # 10.8 K/mm3 (1.4-6.5); GRAN % 84.6 % (42.2-75.2); HEMATOCRIT 39.6 % (37.0-47.0); HEMOGLOBIN 12.6 g/dl (12.5-16.0); LYMPH # 1.2 K/mm3 (1.2-3.4); MEAN CORPUSCULAR HEMOGLOBIN 25 pg (27-31); MEAN CORPUSCULAR HGB CONC 32 g/dl (33.0-37.0); MEAN PLATELET VOLUME 10.2 fl (7.4-10.4); MONO # 0.7 K/mm3 (0.1-0.6); MONO % 5.7 % (1.7-9.3); RED BLOOD COUNT 5.05 M/mm3 (4.10-5.30); REDCELL DISTRIBUTION WIDTH-CV 17.9 % (11.5-14.5)
[2022-02-25 03:48] LABS: PLATELET COUNT 505 K/mm3 (130-400)
[2022-02-25 03:51] LABS: MEAN CELL VOLUME 78 fl (80.0-100.0)
[2022-02-25 03:53] LABS: INR 1.2 (0.8-3.0); PROTHROMBIN TIME 13.6 SECONDS (9.7-12.8)
[2022-02-25 04:06] LABS: ALBUMIN 2.7 gm/dL (3.4-4.8); BILIRUBIN,TOTAL 0.6 mg/dL (0.2-1.2); CALCIUM 8.1 mg/dL (8.4-10.2); CREATININE, serum 0.92 mg/dL (0.57-1.11); MAGNESIUM 1.7 mg/dL (1.6-2.6); PHOSPHOROUS 3.7 mg/dL (2.3-4.7); TOTAL PROTEIN 5.8 gm/dL (6.2-8.1)
[2022-02-25 04:19] LABS: POTASSIUM 2.5 mmol/L (3.5-4.5); TROPONIN-I 1.707 ng/mL (0.00-0.033)
--- NOTE | 2022-02-25 05:06 | NUR ---
SEDATION VACATION PATIENT DID NOT TOLERATED. AFTER 10 MINUTES PATIENT WAS UNABLE TO FOLLOW COMMANDS, TACHYPNEIC, AND COMBATIVE.
[2022-02-25 05:09] LABS: ARTERIAL BLD GAS O2 SATURATION 99.5 % (92-100); ARTERIAL BLD GAS TCO2 CT 26.1; ARTERIAL BLOOD GAS BASE EXCESS 5.4 (-2-2); ARTERIAL BLOOD GAS HCO3 25.3 meq/L (22-26); ARTERIAL BLOOD GAS PCO2 24.9 mmHg (35-45)
[2022-02-25 05:11] LABS: ARTERIAL BLOOD GAS PO2 191.9 mmHg (80-100); ARTERIAL BLOOD GAS pH 7.63 (7.35-7.45)
--- NOTE | 2022-02-25 05:21 | NUR ---
ASSUMED CARE OF PATIENT AFTER RECEIVING BEDSIDE REPORT. PATIENT NOT RESPONSIVE TO STIMULI DURING ASSESSMENT. ASSESSMENT COMPLETED, NOTED BUE EDEMA, FINE CRACKLES IN THE UPPER LUNGS, AND A DISTINCT HEART MURMUR. DURING SEDATION VACATION PATIENT BECAME AGITATED AND TEARFUL, UNABLE TO FOLLOW COMMANDS, AND TACHYPNEIC. PATIENT NOTED TO HAVE SIGNIFICANT ECTOPY, ELISA GALE NOTIFIED. LAB WORK WAS NOTABLE FOR CRITICALLY LOW POTASSIUM AND LOW NORMAL MAGNESIUM. ORDERS RECEIVED FOR REPLACEMENT. ABG WAS ALKALOTIC, CONTACTED BY ELISA GALE AND WILL CALL ALEJANDRINA FOR FURTHER DIRECTION. BEDSIDE REPORT TO BE GIVEN TO ONCOMING SHIFT.
--- NOTE | 2022-02-25 07:00 | NUR ---
Pt still intubated and sedated. Pt receiving KCL replacement. Levo increased d/t bp in the 70's. Pt on lasix and heparin drips. Will continue to monitor.
--- NOTE | 2022-02-25 09:29 | NUR ---
Initial visit; Patient on the ventilator, Ceramic Tile Installer offered prayer in hopes that Silvia heard the prayer.
--- NOTE | 2022-02-25 10:36 | NUR ---
0945 SEDATION VACATION AND WEANING TRIAL STARTED. 1020 PT AWAKE AND ON CPAP TRIAL. 1027 PT EXTUBATED AND OG REMOVED. PT SATING 96% ON RA. NOTTIFIED.
--- NOTE | 2022-02-25 13:27 | NUR ---
Patient is extubated this date and doing well. Worker faxed clinicals to Tyrese at [facility]. Discharge plan: Return to [facility].
[2022-02-26] VITALS (1163 sets, daily range): BP systolic 89–125; BP diastolic 33–87; PULSE 71–80; TEMP 37.1–37.2; O2SAT 47–100
[2022-02-26 05:59] LABS: BASO % 0.2 % (0.0-2.0); GRAN # 9.6 K/mm3 (1.4-6.5); HEMOGLOBIN 10.9 g/dl (12.5-16.0); LYMPH # 0.6 K/mm3 (1.2-3.4); LYMPH % 5.4 % (20.0-51.0); MEAN CORPUSCULAR HEMOGLOBIN 25 pg (27-31); MEAN CORPUSCULAR HGB CONC 30 g/dl (33.0-37.0); MEAN PLATELET VOLUME 10.3 fl (7.4-10.4); MONO # 0.7 K/mm3 (0.1-0.6); RED BLOOD COUNT 4.37 M/mm3 (4.10-5.30); REDCELL DISTRIBUTION WIDTH-CV 18.1 % (11.5-14.5)
[2022-02-26 06:07] LABS: PROTHROMBIN TIME 11.3 SECONDS (9.7-12.8)
[2022-02-26 06:24] LABS: HEMATOCRIT 36.4 % (37.0-47.0)
[2022-02-26 06:28] LABS: MEAN CELL VOLUME 83 fl (80.0-100.0); PLATELET COUNT 399 K/mm3 (130-400)
[2022-02-26 06:39] LABS: ALBUMIN 2.6 gm/dL (3.4-4.8); ALKALINE PHOSPHATASE 82 U/L (40-150); ANION GAP 11 mmol/L (7-16); AST,SGOT 12 U/L (5-34); BILIRUBIN,TOTAL 0.4 mg/dL (0.2-1.2); BLOOD UREA NITROGEN 25 mg/dL (10-20); CALCIUM 8.3 mg/dL (8.4-10.2); CARBON DIOXIDE 26 mmol/L (23-31); CHLORIDE 103 mmol/L (98-107); GLUCOSE 113 mg/dL (70-99); PHOSPHOROUS 3.8 mg/dL (2.3-4.7); POTASSIUM 3.1 mmol/L (3.5-4.5); SODIUM 140 mmol/L (136-145); TOTAL PROTEIN 5.3 gm/dL (6.2-8.1)
[2022-02-26 06:41] LABS: ALANINE AMINOTRANSFERASE < 6 U/L (0-55)
[2022-02-26 06:42] LABS: TSH w REFLEX 1.102 uIU/mL (0.350-4.940)
--- NOTE | 2022-02-26 13:18 | NUR ---
HEPARIN NO CHANGE PER HEPXA- AT GOAL
--- NOTE | 2022-02-26 13:31 | NUR ---
JACKY faxed updates to Tyrese at [facility].
--- NOTE | 2022-02-26 20:30 | NUR ---
PT HAD BEEN SITTING UP IN RECLINER, ASSISTED BACK TO BED. ONE PERSON ASSIST, PT VERY WEAK FROM LIMITED ACTIVITY, HOWEVER HAS BEEN FREQUENTLY DOING ROM EXCERSIZES OF ARMS AND LEGS WHILE IN THE CHAIR AND IN BED. STATES SHE LIKES TO MOVE AROUND SO SHE DOESNT GET SORE. PT VERY TALKATIVE, ALERT AND ORIENTED HOWEVER VERY HARD OF HEARING SO LIMITED ABILTY TO HAVE TWO WAY COMMUNICATION. CURRENTLY ON ROOM AIR, VITALS STABLE WITH BP ON THE LOWER END. PER DAY SHIFT RN IN COMMUNICATING WITH DR. BEARD, OK TO HAVE MAP 60-65 LONG PT IS ASYMPTOMTIC TO HYPOTENSION. WILL CONTINUE TO MONITOR.
[2022-02-27] VITALS (562 sets, daily range): BP systolic 87–116; BP diastolic 41–61; PULSE 55–85; TEMP 98–99.3; O2SAT 64–100
--- NOTE | 2022-02-27 | NUR ---
PT'S R CHEEK NOTED TO BE SLIGHTLY SWOLLEN, MILDLY RED AND WARMER TO TOUCH VERSUS LEFT CHEEK. CENTRAL LINE DRESSING CHANGED AT THIS TIME TO INVESTIGATE SITE. NO INCREASED REDDNESS OR SIGNS OF INFECTION NOTED TO RIJ INSERTION SITE. CHLORAPREP AND BETADINE SWABS USED FOR DRESSING CHANGE AND DRESSING APPLIED SO THAT NO TAPE/DRESSING ADHESIVE IS ON CHEEK AREA FOR MONITORING PURPOSES. WILL FOLLOW.
--- NOTE | 2022-02-27 09:24 | NUR ---
Follow-up; Patient sleeping, Pump And Blower Operator left prayer card wishing her well and God's blessings.
--- NOTE | 2022-02-27 11:08 | NUR ---
The patient is to transfer to the medical floor today. The hospitalist notified JACKY that the patient may be ready to discharge tomorrow, 02/28. JACKY notified Tyrese at [facility]. JACKY to fax updates to [facility]. JACKY contacted and updated the patient's brother, Janes. He is in agreement to the plan. JACKY read the IM form outloud to Janes over the phone. Janes verbalized understanding and gave JACKY approval to sign the form on his behalf. *Discharge plan: [facility] SN[facility]*
[2022-02-28] VITALS (8 sets, daily range): BP systolic 109–131; BP diastolic 50–69; PULSE 68–85; TEMP 98.1–99.3; O2SAT 95–96
[2022-02-28 05:21] LABS: BASO % 0.6 % (0.0-2.0); EOS # 0.1 K/mm3 (0.0-0.7); EOS % 0.9 % (0.0-4.0); GRAN # 3.7 K/mm3 (1.4-6.5); GRAN % 68.1 % (42.2-75.2); HEMOGLOBIN 10.7 g/dl (12.5-16.0); LYMPH # 1.1 K/mm3 (1.2-3.4); LYMPH % 19.8 % (20.0-51.0); MEAN CELL VOLUME 85 fl (80.0-100.0); MEAN CORPUSCULAR HEMOGLOBIN 25 pg (27-31); MEAN CORPUSCULAR HGB CONC 29 g/dl (33.0-37.0); MEAN PLATELET VOLUME 10.4 fl (7.4-10.4); MONO # 0.6 K/mm3 (0.1-0.6); MONO % 10.4 % (1.7-9.3); PLATELET COUNT 340 K/mm3 (130-400); RED BLOOD COUNT 4.33 M/mm3 (4.10-5.30); REDCELL DISTRIBUTION WIDTH-CV 17.6 % (11.5-14.5)
[2022-02-28 05:30] LABS: HEMATOCRIT 36.9 % (37.0-47.0)
[2022-02-28 05:42] LABS: CALCIUM 8.4 mg/dL (8.4-10.2); CREATININE, serum 0.7 mg/dL (0.57-1.11); MAGNESIUM 2.4 mg/dL (1.6-2.6); POTASSIUM 3.8 mmol/L (3.5-4.5)
--- NOTE | 2022-02-28 07:43 | NUR ---
REPORT RECEIVED FROM CELE ROMAN; PATIENT LARGELY UNCHANGED OVERNIGHT. PATIENT RESTED ON AND OFF WITH MOOD STILL BEING LABILE WITH EPISODES OF CRYING. VITAL SIGNS WERE STABLE AND BLOOD PRESSURES SEEMED TO BE BETTER THAN DURING THE DAY YESTERDAY.
--- NOTE | 2022-02-28 16:40 | NUR ---
PT ARRIVED TO FLOOR, PLEASANT, ALERT, X1 ASSIST WITH WALKER TO BED, BED ALARM SET, CALL LIGHT WITHIN REACH, ASSESSMENT PERFORMED, PT VERY [place]
--- NOTE | 2022-02-28 16:41 | NUR ---
PT ARRIVED TO FLOOR, PLEASANT, VERY [place], BED ALARM SET, ASSESSMENT PERFORMED, WILL PLACE PURWICC, NO OTHER NEEDS
--- NOTE | 2022-02-28 21:29 | NUR ---
Patient assessed around 2024. Alert and oriented to self. Patient very hard of hearing. Denies pain and discomfort. TLC to right IJ. Denies SOB and dyspnea. LS CTA in upper lobes, diminished in lower. HRR. Capillary refill less than 3 seconds. Non-tenting skin turgor. BSAx4. Abdomen soft and non-tender. Non-pitting edema to BLE. Indwelling damian catheter patent, drainaing cloudy yellow urine via dependent drainage. Voices no questions, needs, or concerns at this time. In bed with call light within reach. Bed alarm on.
[2022-03-01 00:19] VITALS: BP 124/53; PULSE 78; TEMP 97.9
[2022-03-01 04:19] VITALS: BP 131/68; PULSE 74; TEMP 97.8
--- NOTE | 2022-03-01 05:47 | NUR ---
Patient has been in bed with call light within reach. Denies pain and discomfort. Blood drawn from TLC to right IJ per protocol. Took medications whole, one at a time, in applesauce this shift. Remains on room air at this time. Indwelling damian catheter with cloudy yellow urine.
[2022-03-01 07:27] VITALS: BP 154/44; PULSE 77; TEMP 97.5
--- NOTE | 2022-03-01 08:00 | NUR ---
Patient sleeping in bed, easily awakened with verbal command, patient is [place] so nurse speaks in a louder voice. Patient alert, but confused. VSS. IV CDI. Denies pain and discomfort. Gotti intact. Coloring book and crayons at the bedside. Call light within reach. Bed alarm on
[2022-03-01 12:21] VITALS: BP 102/43; PULSE 71; TEMP 97.6
--- NOTE | 2022-03-01 12:35 | NUR ---
Dr. Diaz reports DC 03/02.
[2022-03-01] MEDS ORDERED: CORDARONE200 MG/TAB PO (13:29)
[2022-03-01] MEDS ORDERED: OMNICEF 300MG300 MG PO (13:31)
--- NOTE | 2022-03-01 13:45 | NUR ---
RT IG IV removed, tip intact, 15 minutes presseure held by the nurse. Gauze and tegederm appllied. Gotti catheter removed, 10 ml removed, balloon tip intact. Pericare provided before and after removal. Patient tolerated well. Call light within reach
--- NOTE | 2022-03-01 13:58 | NUR ---
[facility]
--- NOTE | 2022-03-01 14:05 | NUR ---
Report called to Priscila BLANCO RN.
--- NOTE | 2022-03-01 14:45 | NUR ---
Patient taken by wheelchair to [facility] with [facility] transporter. No further needs expressed.
== END 2022-03-01 14:45 | DRG 871 ==
LOC: COL.ER 07:44 → ICU 09:43 → MEDICAL 02-28 16:35
PROVIDERS: Emergency Medicine; Internal Medicine Pulmonary Disease; Internal Medicine Sleep Medicine; ADMIT Internal Medicine
PROC: 0BH17EZ Insertion of Endotracheal Airway into Trachea, Via Natural or Artificial Opening (ICD-10-PCS; principal; 2022-02-24)
PROC: 5A1935Z Respiratory Ventilation, Less than 24 Consecutive Hours (ICD-10-PCS; 2022-02-24)
DX: A41.51 Sepsis due to Escherichia coli [E. coli] (principal); J18.9 Pneumonia, unspecified organism; R57.0 Cardiogenic shock; J96.01 Acute respiratory failure with hypoxia; I21.A1 Myocardial infarction type 2; I47.1 Supraventricular tachycardia; R65.20 Severe sepsis without septic shock; I45.10 Unspecified right bundle-branch block; E03.9 Hypothyroidism, unspecified; F32.A Depression, unspecified; K21.9 Gastro-esophageal reflux disease without esophagitis; F03.90 Unspecified dementia, unspecified severity, without behavioral disturbance, psychotic disturbance, mood disturbance, and anxiety; I35.0 Nonrheumatic aortic (valve) stenosis; E78.5 Hyperlipidemia, unspecified; H91.90 Unspecified hearing loss, unspecified ear; G60.9 Hereditary and idiopathic neuropathy, unspecified; Z66 Do not resuscitate; Z90.710 Acquired absence of both cervix and uterus; Z20.822 Contact with and (suspected) exposure to COVID-19; Z79.890 Hormone replacement therapy; Z79.4 Long term (current) use of insulin; Z79.82 Long term (current) use of aspirin
CPT/HCPCS: 99232-AI; 99233-AI; 99239; A4314; C9113; J0330; J0692; J0696; J1644; J1650; J1720; J1815; J1940; J2250; J2704; J3010; J3475; J3480; J7030; J7050; J7060; J7120

== ENCOUNTER → 2022-03-11 | Outpatient (CLI) | payer MEDICARE, MEDICAID ==
[~2022-03-11] MED LIST changes: +ALLEGRA 60MG TA60 MG PO; +ASPIRIN E.C. 8181 MG PO; +B-121000 MCG PO; +CETAPHIL MOIST240 ML TP; +CORDARONE200 MG/TAB PO; +K-DUR20 MEQ PO; +LIDO3%CREAM TP; +PATADAY 2.5 ML2.5 ML OD; +SINGULAIR 5M5 MG/TAB PO; +VITAMIN C500 MG PO; +VOLTAREN GEL 1%1 TU TP; +ZOLOFT 100MG100 MG PO
[2022-03-11 10:14] LABS: ALBUMIN 3.1 gm/dL (3.4-4.8); BASO # 0.1 K/mm3 (0.0-0.2); BASO % 1.2 % (0.0-2.0); BILIRUBIN,TOTAL 0.3 mg/dL (0.2-1.2); CALCIUM 8.4 mg/dL (8.4-10.2); CREATININE, serum 0.92 mg/dL (0.57-1.11); EOS # 0.2 K/mm3 (0.0-0.7); EOS % 3.1 % (0.0-4.0); GRAN # 3.1 K/mm3 (1.4-6.5); GRAN % 62.9 % (42.2-75.2); HEMATOCRIT 35.5 % (37.0-47.0); HEMOGLOBIN 10.5 g/dl (12.5-16.0); LYMPH % 19.7 % (20.0-51.0); MEAN CELL VOLUME 83 fl (80.0-100.0); MEAN CORPUSCULAR HEMOGLOBIN 24 pg (27-31); MEAN CORPUSCULAR HGB CONC 30 g/dl (33.0-37.0); MEAN PLATELET VOLUME 10.8 fl (7.4-10.4); MONO # 0.6 K/mm3 (0.1-0.6); MONO % 12.7 % (1.7-9.3); PLATELET COUNT 385 K/mm3 (130-400); POTASSIUM 4.2 mmol/L (3.5-4.5); REDCELL DISTRIBUTION WIDTH-CV 17.1 % (11.5-14.5); TOTAL PROTEIN 5.8 gm/dL (6.2-8.1)
== END ==
LOC: ZLAB.STJ 10:09
PROVIDERS: Internal Medicine
DX: A41.51 Sepsis due to Escherichia coli [E. coli] (principal); R57.0 Cardiogenic shock

== ENCOUNTER 2022-03-26 08:12 | Inpatient (IN) | payer MEDICARE, MEDICAID ==
[~2022-03-26] VITALS: Ht 170.2 cm; Wt 77.3 kg
[~2022-03-26 08:12] MED LIST changes: -PATADAY 2.5 ML2.5 ML OD; -VOLTAREN GEL 1%1 TU TP
[2022-03-26 11:42] LABS: BASO % 0.4 % (0.0-2.0); EOS # 0.1 K/mm3 (0.0-0.7); EOS % 0.7 % (0.0-4.0); GRAN # 6.2 K/mm3 (1.4-6.5); GRAN % 85.4 % (42.2-75.2); HEMATOCRIT 42.2 % (37.0-47.0); HEMOGLOBIN 12.5 g/dl (12.5-16.0); LYMPH # 0.5 K/mm3 (1.2-3.4); LYMPH % 6.2 % (20.0-51.0); MEAN CELL VOLUME 83 fl (80.0-100.0); MEAN CORPUSCULAR HEMOGLOBIN 25 pg (27-31); MEAN CORPUSCULAR HGB CONC 30 g/dl (33.0-37.0); MEAN PLATELET VOLUME 10.4 fl (7.4-10.4); MONO # 0.5 K/mm3 (0.1-0.6); PLATELET COUNT 306 K/mm3 (130-400); RED BLOOD COUNT 5.08 M/mm3 (4.10-5.30); REDCELL DISTRIBUTION WIDTH-CV 18.4 % (11.5-14.5)
[2022-03-26 11:54] LABS: ALBUMIN 3.2 gm/dL (3.4-4.8); BILIRUBIN,TOTAL 0.6 mg/dL (0.2-1.2); CALCIUM 8.6 mg/dL (8.4-10.2); CREATININE, serum 0.97 mg/dL (0.57-1.11); TOTAL PROTEIN 6.2 gm/dL (6.2-8.1)
[2022-03-26 12:00] LABS: TROPONIN-I 0.023 ng/mL (0.00-0.033)
[2022-03-26] MEDS ORDERED: PATADAY 2.5 ML2.5 ML OD (15:42)
[2022-03-26] MEDS ORDERED: VOLTAREN GEL 1%1 TU TP (15:43)
--- NOTE | 2022-03-26 17:00 | NUR ---
THE PATIENT ARRIVED TO THE MEDICAL FLOOR. SHE HAS A PUREWICK IN PLACE. DENIES ANY PAIN. CALLED PATIENT'S FAMILY TO NOTIFY THEM OF HER ARRIVAL TO OUR FLOOR. CALLED [facility] FOR CURRENT MEDICATIONS LIST. THOSE WERE FAXED. THE PATIENT DOES NOT ANSWER QUESTIONS APPROPRIATELY. SHE IS ALERT AND ORIENTED, BUT DOES HAVE SOME MOMENTS OF FORGETFULLNESS. ASSESSMENT OF PATIENT COMPLETED; THERE IS A NON-BLANCHABLE REDDENED AREA THAT MAY RESEMBLE SOME BREAKDOWN FROM MOISTURE AND PRESSURE COMBINED. CELE PATHAK ALSO ASSESSED THIS AREA FOR VERIFICATION. NO OTHER CONCERNS AT THIS TIME.
[2022-03-26 17:32] VITALS: BP 103/58; PULSE 80; TEMP 97.8
--- NOTE | 2022-03-26 19:52 | NUR ---
REPORT GIVEN TO DIGITAL PRINTER NURSE.
[2022-03-26 20:25] VITALS: BP 98/44; PULSE 97; TEMP 98.9
[2022-03-27 00:38] VITALS: BP 104/61; PULSE 80; TEMP 98.2
[2022-03-27 04:00] VITALS: BP 110/45; PULSE 79; TEMP 97.7
--- NOTE | 2022-03-27 06:20 | NUR ---
ASSESSMENT COMPLETE FOR THIS SHIFT. PT RESTING IN BED WORKING ON A CROSSWORD PUZZLE. PT VERY HARD OF HEARING. PT COMPLAINED OF LEFT ANKLE PAIN. PT GIVEN TYLENOL FOR PAIN. TYLENOL GAVE PT SOME RELIEF. HOSPITALIST INFORMED. WILL ALSO PASS ON TO DAYSMSFT RN. PT DENIED PALPITATIONS, SOB, N,V,D OR DIZZINESS. PT EXPRESSED NO OTHER NEEDS AT THIS TIME. CALL LIGHT WITHIN REACH.
[2022-03-27 07:58] VITALS: BP 118/52; PULSE 82; TEMP 97.8
--- NOTE | 2022-03-27 08:43 | NUR ---
RA SPO2 83%/ PACED BACK OJ 5 LPM NC SP02 90%. RN NOTIFIED.
--- NOTE | 2022-03-27 09:35 | NUR ---
JACKY confirmed with Tyrese at [facility] that the patient is a long-term care resident with them. The patient's DPOA-HC is in EMR. It designates her brother, Kevin Larson (ph#[phone]). The first alternate is her other brother, Janes Larson (ph#[phone]). The second alternate is her brother, Nickolas Larson (ph#[phone]). JACKY attempted to contact both Kevin and Janes. They did not answer. JACKY then contacted Nickolas. Nickolas states that he typically takes care of health care decisions. Nickolas confirms that the plan is for the patient to return back to [facility] upon discharge. The patient's PCP is Dr. Esha Antunez. JACKY faxed updates to Tyrese at [facility]. JACKY to continue to follow. *Discharge plan: [facility]*
[2022-03-27 11:57] VITALS: BP 112/50; PULSE 80; TEMP 98
--- NOTE | 2022-03-27 12:27 | NUR ---
PATIENT VERY HARD OF HEARING AND VERY CONFUSED. SHE IS AWARE SHE FELL, AND PER HER MEMORY SHE GOT ASPRIN OVERNIGHT TO HELP WITH ALL OVER SORENESS. SHE DOES HAVE AN ABRASION, ROUND REDNESS ON THE TOP OF HER FOREHEAD. SHE HAS TROUBLE STAYING FOCUSED ON WHAT IS HAPPENING. C/O PAIN IN THE LOWER LEFT EXTREMITY, SPECIFICALLY THE ANKLE. STATES THAT IS WHERE SHE FELL. TOOK PILLS 1-2 AT A TIME WITH JUICE. PATIENT DOES NOT HAVE TEETH, REQUESTED SPEECH EVAL FROM LEVEL OF DIET APPROPRIATE. PATIENT RESTING IN BED. WILL ASSESS SACRUM WHEN AMBULATING LATER. PT/OT TO EVAL, BEDREST TILL EVAL.
[2022-03-27 13:52] LABS: BASO % 0.5 % (0.0-2.0); EOS % 0.7 % (0.0-4.0); GRAN # 4.9 K/mm3 (1.4-6.5); GRAN % 80.3 % (42.2-75.2); HEMATOCRIT 40.6 % (37.0-47.0); HEMOGLOBIN 11.9 g/dl (12.5-16.0); LYMPH # 0.5 K/mm3 (1.2-3.4); LYMPH % 8.5 % (20.0-51.0); MEAN CELL VOLUME 82 fl (80.0-100.0); MEAN CORPUSCULAR HEMOGLOBIN 24 pg (27-31); MEAN CORPUSCULAR HGB CONC 29 g/dl (33.0-37.0); MEAN PLATELET VOLUME 10.4 fl (7.4-10.4); MONO # 0.6 K/mm3 (0.1-0.6); MONO % 9.5 % (1.7-9.3); PLATELET COUNT 301 K/mm3 (130-400); RED BLOOD COUNT 4.98 M/mm3 (4.10-5.30)
[2022-03-27 14:11] LABS: CALCIUM 8.2 mg/dL (8.4-10.2); CREATININE, serum 0.94 mg/dL (0.57-1.11); POTASSIUM 3.8 mmol/L (3.5-4.5)
[2022-03-27 14:22] LABS: TROPONIN-I 0.036 ng/mL (0.00-0.033)
--- NOTE | 2022-03-27 14:42 | NUR ---
Attempted to talk with patient but she is extremely hard of hearing and unable to follow the conversation. Call made to patient's brother, Nickolas. Explained who I was and what I do. Nickolas stated he figured this day was coming and asked how quickly I would need an answer on any goals of care; he will talk with his brothers and come to a family agreement. I informed him that I am happy to touch base with him Wednesday and see how the weekend went and if any questions came up. He agreed and took my contact information.
[2022-03-27 16:00] VITALS: BP 109/49; PULSE 79; TEMP 97.7
--- NOTE | 2022-03-27 20:01 | NUR ---
PATIENT VERY HARD OF HEARING. SPEECH EVAL PERFORMED, PATIENT TO BE ON MECHANICAL SOFT, WITH NECTAR THICK LIQUIDS. PILLS TO BE CRUSHED AND GIVEN WITH PUDDING. LOWER RIGHT EXTREMITY XRAY CLEAR. NO SIGNIFICANT EVENTS THIS SHIFT.
[2022-03-27 20:33] VITALS: BP 107/54; PULSE 83; TEMP 98
[2022-03-28] VITALS (7 sets, daily range): BP systolic 104–119; BP diastolic 46–50; PULSE 59–95; TEMP 97.6–98.3
--- NOTE | 2022-03-28 08:03 | NUR ---
ASSESSMENT COMPLETE FOR THIS SHIFT. PT RESTING IN BED SLEEPING. WHEN ASKED ABOUT PAIN, PT STATED, I'M OK. PT SHOWED NO SIGNS OF DIZZINESS, N,V,D OR DISCOMFORT OTHER THEN WHEN SHE ASKED FOR HER PAD/BRIEF TO BE CHANGED. WILL CONTINUE TO MONITOR PT FOR NEEDS. CALL LIGHT WITHIN REACH.
[2022-03-28 08:38] LABS: BASO % 0.4 % (0.0-2.0); EOS # 0.1 K/mm3 (0.0-0.7); GRAN # 5.4 K/mm3 (1.4-6.5); GRAN % 76.7 % (42.2-75.2); HEMATOCRIT 40.6 % (37.0-47.0); HEMOGLOBIN 12.5 g/dl (12.5-16.0); LYMPH # 0.7 K/mm3 (1.2-3.4); LYMPH % 9.4 % (20.0-51.0); MEAN CELL VOLUME 79 fl (80.0-100.0); MEAN CORPUSCULAR HEMOGLOBIN 24 pg (27-31); MEAN CORPUSCULAR HGB CONC 31 g/dl (33.0-37.0); MEAN PLATELET VOLUME 10.4 fl (7.4-10.4); MONO # 0.9 K/mm3 (0.1-0.6); MONO % 12.1 % (1.7-9.3); PLATELET COUNT 323 K/mm3 (130-400); RED BLOOD COUNT 5.14 M/mm3 (4.10-5.30)
[2022-03-28 08:51] LABS: CALCIUM 8.7 mg/dL (8.4-10.2); CREATININE, serum 0.85 mg/dL (0.57-1.11); POTASSIUM 3.3 mmol/L (3.5-4.5)
--- NOTE | 2022-03-28 12:59 | NUR ---
PATIENT VERY HARD OF HEARING. SLEEPS HEAVILY IN-BETWEEN INTERACTIONS WITH STAFF. STRUGGLED WITH PT TODAY. COMPLAINTS OF PAIN IN B/L GREAT TOES. HEELS FLOATED. PE CT OF CHEST. MEDS TAKEN CRUSHED WITH PUDDING. NECTAR THICKENED LIQUIDS. NEEDS ENCOURAGEMENT FOR FEEDING/DRINKING.
--- NOTE | 2022-03-28 19:26 | NUR ---
PATIENT RESTING IN BED TODAY. FAILED WITH PT. DIET CHANGED TO MINCED AND MOIST. FEED ASSIST. FREQUENT CHECKS FOR O2 NC PLACEMENT. WILL OFTEN REMOVE O2. NO OTHER SIGNIFICANT EVENTS TODAY.
[2022-03-29] VITALS (9 sets, daily range): BP systolic 92–165; BP diastolic 44–70; PULSE 65–84; TEMP 97.6–98.6
--- NOTE | 2022-03-29 05:30 | NUR ---
ASSESSMENT COMPLETE FOR THIS SHIFT. PT RESTING IN BED WATCHING GAME SHOWS. PT DON'T COMPLAIN OF ANY PAIN OR LOOK LIKE SHE WAS IN PAIN THIS SHIFT. PT SHOWED NO SIGNS OF SOB, N,V,D OR DIZZINESS. PT DID A BETTER JOB OF KEEPING HER O2 ON. I DO HAVE TO WRITE THINGS OUT FOR PT TO UNDERSTAND ME BECAUSE SHE IS SO HARD OF HEARING. BEFORE, PT WILL ASK THAT HER BRIEF/PAD BE CHANGED NEEDED. WILL CONTINUE TO MONITOR FOR OTHER NEEDS. CALL LIGHT WITHIN REACH.
[2022-03-29 06:52] LABS: BASO % 0.7 % (0.0-2.0); EOS # 0.1 K/mm3 (0.0-0.7); EOS % 2.1 % (0.0-4.0); GRAN # 4.1 K/mm3 (1.4-6.5); GRAN % 71.8 % (42.2-75.2); HEMATOCRIT 41.8 % (37.0-47.0); HEMOGLOBIN 12.6 g/dl (12.5-16.0); LYMPH # 0.8 K/mm3 (1.2-3.4); MEAN CELL VOLUME 81 fl (80.0-100.0); MEAN CORPUSCULAR HEMOGLOBIN 25 pg (27-31); MEAN CORPUSCULAR HGB CONC 30 g/dl (33.0-37.0); MEAN PLATELET VOLUME 10.6 fl (7.4-10.4); MONO # 0.7 K/mm3 (0.1-0.6); MONO % 12.2 % (1.7-9.3); PLATELET COUNT 348 K/mm3 (130-400); RED BLOOD COUNT 5.15 M/mm3 (4.10-5.30); REDCELL DISTRIBUTION WIDTH-CV 17.9 % (11.5-14.5)
[2022-03-29 06:58] LABS: CALCIUM 8.8 mg/dL (8.4-10.2); CREATININE, serum 0.82 mg/dL (0.57-1.11); POTASSIUM 3.5 mmol/L (3.5-4.5)
--- NOTE | 2022-03-29 09:00 | NUR ---
Shift assessment complete. Pt resting in bed. Alert, partially oriented. On 3 lpm O2 by NC. Heart RRR. Lungs CTA. Family interested in palliative care. Pt's brother/DPOA would like to speak with hospitalist about prognosis so a decision can be made. notified and at bedside with family. Continuing to monitor.
--- NOTE | 2022-03-29 18:13 | NUR ---
Pt refusing to eat or drink anything for dinner stating repeatedly "I can't have sodium or fluid because it's ruining my heart." Attempted to educate pt that sodium and fluid intake is being monitored closely and she can have it in moderation but pt refusing to listen. Continuing to monitor.
[2022-03-30 03:16] VITALS: BP 115/50; PULSE 63; TEMP 98.1
--- NOTE | 2022-03-30 05:41 | NUR ---
ASSESSMENT COMPLETE FOR THIS SHIFT. PT RESTING IN BED NAPPING. PT VERY HARD OF HEAR, SO I HAVE TO WRITE QUESTIONS AND STATEMENTS DOWN FOR HER TO READ. PT STATES SHE HAD SOME PAIN TO HER RIGHT SIDE EARLIER BUT IT WAS NO LONGER THERE. PT ALSO DENIED PALPITATIONS, N,V,D, SOB OR DIZZINESS. PT THEN WENT ON TO SAY THAT SHE COULD NOT EAT OR DRINK ANY OF THE FOOD OR DRINKS WE WERE GIVING HER BECAUSE IT HAD TOO MUCH SALT IN IT AND THAT THE PRINT OUT SHE WAS GIVEN SAID SHE HAD HEART FAILURE AND THAT SHE COULD ONLY HAVE A LITTLE BIT OF SALT. PT STATED THAT ALL THE FOOD WE HAD BEEN GIVING HER OVER THE LAST THREE DAYS HAD OVER 2000MG OF SALT AND THAT SHE COULD ONLY EAT CAN VEGETABLES AND TUNA, SO THAT SHE CAN SEE HOW MUCH SALT WAS IN THE FOOD, SO SHE DIDN'T EAT TOO MUCH AND HURT HER HEART. PT STATED THAT SHE WANTED TO BE AROUND A BIT LONGER FOR HER DAUGHTER, BECAUSE HER DAUGHTER DIDN'T HAVE ANYBODY OTHER THAN, "THEM NO GOOD BOYFRIENDS OF HERS." I EXPLAINED TO PT THAT THE DOCTOR AND AUTO RESEARCH ENGINEER WHO KNEW ABOUT HER HEART CONDITION, PUT HER ON THE DIET SHE IS CURRENTLY ON. AND THAT THE FOOD THAT WE GIVE HER IS NOT OVER HER SODIUM LIMIT. I EXPLAINED TO HER THAT THE APPLE SAUCE THAT SHE TAKES HER MEDS WITH ONLY HAS 5MG OF SODIUM AND SHE COULD STILL DRINK THE THICKEN FLUIDS WE GIVE HER BECAUSE WE ARE MAKING SURE SHE DOESN'T GET MORE THAN SHE CAN HAVE. I ALSO EXPLAINED TO HER THAT WE REALLY WANTED HER TO EAT AND DRINK SO THAT HER BODY CAN HEAL, TO KEEP HER BLOOD PRESSURE UP AND TO KEEP HER ENERGY UP. PT SEEMED MORE WILLING TO TAKE HER PILLS IN THE APPLE SAUCE, BUT SHE SEEMED STUCK ON THE NEED TO ONLY EAT CAN VEGETABLES AND TUNA, SO SHE KNOWS HOW MUCH SALT IS IN HER FOOD. WILL CONTINUE TO ENCOURAGE HER TO EAT AND DRINK WHAT WE PROVIDE FOR HER HERE IN THE HOSPITAL. CALL LIGHT WITHIN REACH.
[2022-03-30 06:43] LABS: BASO # 0.1 K/mm3 (0.0-0.2); BASO % 0.8 % (0.0-2.0); EOS # 0.1 K/mm3 (0.0-0.7); EOS % 1.7 % (0.0-4.0); GRAN # 4.3 K/mm3 (1.4-6.5); GRAN % 71.6 % (42.2-75.2); HEMATOCRIT 39.1 % (37.0-47.0); HEMOGLOBIN 11.9 g/dl (12.5-16.0); LYMPH # 0.7 K/mm3 (1.2-3.4); LYMPH % 12.2 % (20.0-51.0); MEAN CELL VOLUME 79 fl (80.0-100.0); MEAN CORPUSCULAR HEMOGLOBIN 24 pg (27-31); MEAN CORPUSCULAR HGB CONC 30 g/dl (33.0-37.0); MEAN PLATELET VOLUME 10.6 fl (7.4-10.4); MONO # 0.8 K/mm3 (0.1-0.6); MONO % 13.4 % (1.7-9.3); PLATELET COUNT 344 K/mm3 (130-400); RED BLOOD COUNT 4.95 M/mm3 (4.10-5.30); REDCELL DISTRIBUTION WIDTH-CV 17.7 % (11.5-14.5)
[2022-03-30 07:01] LABS: CALCIUM 8.8 mg/dL (8.4-10.2); CREATININE, serum 0.91 mg/dL (0.57-1.11); POTASSIUM 3.6 mmol/L (3.5-4.5)
[2022-03-30 07:38] VITALS: BP 133/49; PULSE 66; TEMP 97.7
[2022-03-30] MEDS ORDERED: CORDARONE200 MG/TAB PO ×2 (10:04→10:40)
[2022-03-30] MEDS ORDERED: LASIX 20MG TABL20 MG PO (10:05)
--- NOTE | 2022-03-30 11:14 | NUR ---
SW informed that patient would be discharging to [facility] on this day. SW faxed documentation to facility. SW will continue to follow.
--- NOTE | 2022-03-30 11:37 | NUR ---
Call made to patient's brother, Nickolas. He stated that he and his brother's are all in agreement that hospice is probably appropriate for Silvia. Nickolas stated that they would be happy to use whomever [facility] recommends because they want to keep her there regardless. Nickolas expressed concern about Silvia complaining of not feeling her hands and feet and asked if the doctor was pursuing that at all. I told him I would have either the SW or hospitalist team reach out to him or his brother, Kevin, with an update. Notified SW and hospitalist team of family questions/concerns.
--- NOTE | 2022-03-30 11:46 | NUR ---
PATIENT COMPLAINT OF RIGHT RIB PAIN, NO NOTICEABLE DEVIATION. NO GUARDING OR REACTION TO PALAPATION OF AREA INDICATED. PATIENT RIGHT HEEL, REDDEND ON AREA THAT CONSISTENTLY SITS ON BED. STILL BLANCHABLE. VERY THIN SKIN OVER CARLOS PROMINENCE. MASSAGED, AND FEET PLACED IN HEEL PROTECTION BOOTS. PATIENT TRIALED ON ROOM AIR. O2 SATURATIONS REMAINED AT 93%. PLAN TO DISCHARGE BACK TO [facility], WITH POSSIBLE HOSPICE AT THE [facility]. PATIENT TOOK MEDS IN PUDDING, WHOLE/CUT IN HALF. SWALLOWED WITH NO CONCERNS. POTASSIUM REPLACED. LASIX SWITCHED TO PO IV INFILTRATED. IV REMOVED. 650 OF TYLENOL GIVEN FOR PATIENT C/O PAIN.
[2022-03-30 11:53] VITALS: BP 109/37; PULSE 66; TEMP 97.4
--- NOTE | 2022-03-30 11:54 | NUR ---
JACKY was informed that family would like for patient to have hospice services at [facility] where she will be transfer to on this day. JACKY called brother Nickolas and he confirmed information. JACKY spoke to BALJINDER bhatia she provided she is aware and that the conversation will continue when patient arrives at [facility]. SW awaiting call from facility to coordinate time of transfer. JACKY will continue to follow
--- NOTE | 2022-03-30 16:34 | NUR ---
PATIENT IV INT REMOVED. TELE REMOVED, BRIEF CHANGED, AND PATIENT DRESSED. PATIENT STAND AND PIVOT TO WHEEL CHAIR. INTELLIGENCE CHIEF FROM [facility] TRANSPORTED.
== END 2022-03-30 14:30 | DRG 189 ==
LOC: COL.ER 08:12 → MEDICAL 13:37
PROVIDERS: Physician Assistant; Student in an Organized Health Care Education/Training Program
DX: J96.01 Acute respiratory failure with hypoxia (principal); J81.1 Chronic pulmonary edema; J90 Pleural effusion, not elsewhere classified; I35.0 Nonrheumatic aortic (valve) stenosis; I48.0 Paroxysmal atrial fibrillation; E03.8 Other specified hypothyroidism; I10 Essential (primary) hypertension; E78.5 Hyperlipidemia, unspecified; F41.9 Anxiety disorder, unspecified; F32.A Depression, unspecified; K21.9 Gastro-esophageal reflux disease without esophagitis; K58.9 Irritable bowel syndrome, unspecified; F03.90 Unspecified dementia, unspecified severity, without behavioral disturbance, psychotic disturbance, mood disturbance, and anxiety; E87.6 Hypokalemia; Z95.1 Presence of aortocoronary bypass graft; Z88.0 Allergy status to penicillin; Z88.2 Allergy status to sulfonamides; Z79.82 Long term (current) use of aspirin; Z20.822 Contact with and (suspected) exposure to COVID-19
CPT/HCPCS: 99232-AI; 99233-AI; 99239; J1644; J1940; Q9967

== ENCOUNTER 2022-04-15 16:31 | Emergency (ER) | payer MEDICARE, MEDICAID ==
[~2022-04-15 16:31] MED LIST changes: +PATADAY 2.5 ML2.5 ML OD; +VOLTAREN GEL 1%1 TU TP
[2022-04-15 16:42] VITALS: TEMP 97.9
[2022-04-15 17:31] VITALS: BP 132/51; PULSE 54
== END 2022-04-15 18:56 | disposition home or self-care (01) ==
LOC: COL.ER 16:31
DX: R60.0 Localized edema (principal); Z28.310 Unvaccinated for COVID-19

== ENCOUNTER 2022-06-29 12:06 | Emergency (ER) | payer MEDICARE, MEDICAID ==
[2022-06-29 12:07] VITALS: TEMP 98.1
[2022-06-29 13:50] VITALS: BP 143/66; PULSE 77
== END 2022-06-29 13:50 | disposition home or self-care (01) ==
LOC: COL.ER 12:06
DX: S01.01XA Laceration without foreign body of scalp, initial encounter (principal); W19.XXXA Unspecified fall, initial encounter; W22.8XXA Striking against or struck by other objects, initial encounter